=== PATIENT | female | born 1960 | race Caucasian/White ===

== ENCOUNTER → 2019-12-08 14:17 | Outpatient (CLI) | payer OTHER, SELFPAY ==
--- NOTE | ~2019-12-08 | XR_ITS ---
EXAMINATION: XR chest 2V 12/08/2019 14:29 INDICATION: Shortness of breath PROCEDURE: 2 view chest COMPARISON: No prior studies for comparison. FINDINGS: The lungs are clear. Calcified granuloma right upper thorax. The lungs are hyperinflated wh ich is consistent with, but not diagnostic of chronic obstructive pulmonary disease. The cardiomedias tinal silhouette is within normal limits. There are no pleural effusions. There is no pneumothorax suspected. IMPRESSION: 1: NO ACUTE CARDIOPULMONARY DISEASE. Reviewed, dictated and finalized at location B.
== END ==
PROVIDERS: PCP Family Medicine; Visit Provider Nurse Practitioner Family
DX: R06.02 Shortness of breath (principal)
CPT/HCPCS: 71046

== ENCOUNTER 2020-11-28 07:52 | Emergency (ER) | payer OTHER, SELFPAY ==
--- NOTE | ~2020-11-28 | CT_ITS ---
EXAMINATION: CT abdomen pelvis wo con DATE: 11/28/2020 09:52 INDICATION: Left flank pain TECHNIQUE: Computed tomography (CT) of the abdomen and pelvis was performed without intravenous contr ast. The dose-length product (DLP) was 519.41 mGy-cm. Automated exposure control and iterative recons truction technique were employed. COMPARISON: None FINDINGS: The lung bases are clear. The heart size is normal. The gallbladder is surgically absent. T here is mild enlargement of the common bile duct and central intrahepatic ducts which is likely due t o post cholecystectomy state. The liver, spleen, pancreas, and adrenal glands are normal. The kidneys are unremarkable. No stones are identified in the kidneys, ureters, or bladder. There is no hydronep hrosis or hydroureter. No pathologically enlarged abdominal or pelvic lymph nodes are identified. The re is no free intraperitoneal gas or evidence of bowel obstruction. Colonic diverticulosis is present without evidence of diverticulitis. The appendix is normal. IMPRESSION: 1. No CT correlate for the patient's symptoms. Reviewed, dictated and finalized at location A.
[2020-11-28 08:11] VITALS: BP 142/83; PULSE 77; RESP 18; TEMP 36.6; O2SAT 100
--- NOTE | 2020-11-28 08:13 | ED.ABDPAIN ---
HPI - Abdominal Pain General Chief Complaint: Abdominal Pain Stated Complaint: L Flank Pain Time Seen by Provider: 11/28/20 08:12 Source: patient Mode of arrival: ambulatory Limitations: no limitations History of Present Illness HPI narrative: Patient is a 60-year-old female complaining of left flank pain, left mid back pain, 8 out of 10, nonradiating, sharp started 5 days ago accompanied by blood in her urine. Patient states that she has been evaluated for blood in her urine by her urologist and had a cystoscopy done. Patient denies any chest pain, shortness of breath, abdominal pain, nausea, vomiting, diarrhea, fever or chills. Related Data Allergies Allergy/AdvReac Type Severity Reaction Status Date / Time Penicillins Allergy Unknown Unknown Verified 11/28/20 08:15 Review of Systems Review of Systems: All systems reviewed & are unremarkable except as noted in HPI and below Constitutional: Constitutional: Denies body ache(s), Denies chills, Denies excessive sweating, Denies fatigue, Denies fever(s), Denies headache(s), Denies lethargy, Denies malaise, Denies weakness and Denies weight loss Eyes: Eyes: Denies blurry vision, Denies change in vision and Denies loss of vision ENT: Denies dizziness, Denies ear discharge, Denies headache(s), Denies lip swelling, Denies epistaxis, Denies nasal congestion, Denies neck pain, Denies throat swelling and Denies tongue swelling Cardiovascular: Cardiovascular: Denies chest pain, Denies chest pain at rest, Denies chest pain with activity, Denies diaphoresis, Denies rapid heart rate, Denies edema, Denies irregular heart rhythm, Denies lightheadedness, Denies palpitations, Denies dyspnea and Denies dyspnea on exertion Respiratory: Respiratory: Denies chest congestion, Denies cough, Denies hemoptysis, Denies dyspnea and Denies dyspnea on exertion Gastrointestinal: Gastrointestinal: Denies abdominal pain, Denies melena, Denies hematochezia, Denies diarrhea, Denies nausea, Denies vomiting and Denies hematemesis Musculoskeletal: Musculoskeletal: Denies abnormal gait, Denies deformity, Denies joint swelling, Denies limited range of motion, Denies neck pain and Denies numbness Neurologic: Denies Abnormal speech present, Denies abnormal gait, Denies confusion, Denies dizziness, Denies headache(s), Denies focal weakness, Denies loss of vision, Denies numbness, Denies Other visual disturbances, Denies Sensory deficit (Neuro) and Denies weakness Psychiatric: Psychiatric: Denies confusion, Denies depression, Denies auditory hallucinations, Denies homicidal ideation and Denies suicidal ideation Endocrine: Endocrine: Denies cold intolerance, Denies excessive sweating, Denies fatigue, Denies heat intolerance and Denies palpitations Hematologic/Lymphatic: Hematologic/Lymphatic: Denies easy bleeding and Denies easy bruising Allergic/Immunologic: Allergic/Immunologic: Denies lip swelling, Denies throat swelling and Denies tongue swelling PMFSH Past Medical History Medical History BMI 27.0-27.9,adult Encounter for cholecystectomy Surgical History Surgical History History of tonsillectomy Family History Family History Father Heart disease Mother Heart disease Blood clot in vein Hypertension Sibling No problems noted. 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
[2020-11-28 08:18] LABS: Basophils Percent Auto 0.3 % (0.2-1.2); Eosinophils Absolute Auto 0.2 K/mm3 (0-0.3); Eosinophils Percent Auto 2.3 % (0-4.4); Hematocrit 45.4 % (37.0-47.0); Hemoglobin 14.9 g/dL (12.0-15.0); Immature Granulocyte Absolute 0.02 K/mm3 (0.00-0.031); Immature Granulocyte Percent A 0.3 % (0-0.5); Lymphocytes Absolute Auto 2.73 K/mm3 (0.9-3.2); Lymphocytes Percent Auto 42.6 % (18.3-44.2); Mean Corpuscular HGB Conc 32.8 g/dl (32-36); Mean Corpuscular Hemoglobin 31.4 pg (26-34); Mean Corpuscular Volume 95.6 fl (80-100); Mean Platelet Volume 9.8 fl (7.4-10.4); Monocytes Absolute Auto 0.4 K/mm3 (0.1-0.6); Monocytes Percent Auto 6.2 % (2.6-8.5); Neutrophils Absolute Auto 3.1 K/mm3 (1.3-6.7); Neutrophils Percent Auto 48.3 % (45.5-73.1); Platelet Count Result 347 k/mm3 (150-375); Red Blood Count 4.75 M/mm3 (4.2-5.4); Red Cell Distribution Width 13.2 % (11.5-14.5); White Blood Count 6.4 K/mm3 (4.5-10.0)
[2020-11-28 08:31] LABS: Anion Gap 11 mmol/L (8-16); Blood Urea Nitrogen 17 mg/dL (7-17); Calcium 9.4 mg/dL (8.4-10.2); Carbon Dioxide 23 mmol/L (22-30); Chloride 105 mmol/L (98-107); Estimated CRCL calculation 81 ml/min; Estimated Glomerular Filt Rate > 60; Glucose 107 mg/dL (65-105); Potassium 4.4 mmol/L (3.4-5.0); Sodium 139 mmol/L (137-145)
[2020-11-28 08:43] LABS: Add Urine Microscopic? YES; Appearance Urine Clear (Clear); Bacteria Urine Trace /hpf; Bilirubin Urine Negative (Negative); Blood Urine 2+ (Negative); Color Urine Yellow (Yellow); Glucose Urine UA Negative (Negative); Ketones Urine Negative (Negative); Leukocyte Esterase Ur Negative LEU/UL (Negative); Mucus Urine Rare /lpf; Nitrate Urine Negative (Negative); Protein Urine Negative (Negative); Specific Grav Ur 1.018 (1.001-1.035); Squamous Epithelial Cell Urine Many /hpf (Few); Urobilinogen Urine Negative mg/dL (<2.0); WBC Urine 0-3 /hpf
[2020-11-28] MEDS: KETOROLAC 30 MG/ML VIAL (*BKC) IV PUSH (09:11)
[2020-11-28] MEDS: HYDROcodone/acetaminophen (*CRX) 5-325 MG TABLET 1 TAB PO (09:11)
[2020-11-28 09:31] LABS: D Dimer 0.27 ug/mL (<0.48)
[2020-11-28 11:02] VITALS: BP 122/72; PULSE 71; RESP 18; O2SAT 96
== END 2020-11-28 11:05 | disposition home or self-care (01) ==
PROVIDERS: Emergency Provider Emergency Medicine; PCP Family Medicine
DX: M54.9 Dorsalgia, unspecified (principal); E78.5 Hyperlipidemia, unspecified
CPT/HCPCS: 36415; 74176; 80048; 81001; 85025; 85380; 96374; 99284; A9270; J1885

== ENCOUNTER 2023-12-02 08:00 | Outpatient (CLI) | payer BC, OTHER, SELFPAY ==
--- NOTE | ~2023-12-02 | XR_ITS ---
3 VIEWS LUMBAR SPINE Ordering provider: Juan Mathews MD History: . NON TRAUMA LBP FOR APPROX 2 MONTHS RADIATING DOWN LEFT LEG . Comparison: None. FINDINGS: VERTEBRAL BODIES: No visible fracture or subluxation. DISK SPACES: Narrowing of the disc L3-L4, and L4-L5. Multilevel facet joint disease. SOFT TISSUES: Normal. IMPRESSION: No acute osseous abnormality lumbar spine. Multilevel degenerative disc disease. Reviewed, dictated and finalized at location A.
== END 2023-12-02 08:01 | disposition home or self-care (01) ==
PROVIDERS: PCP Family Medicine; Visit Provider Family Medicine
DX: M51.36 Other intervertebral disc degeneration, lumbar region (principal)
CPT/HCPCS: 72114

== ENCOUNTER 2023-12-21 13:21 | Emergency (ER) | payer BC, OTHER, SELFPAY ==
[2023-12-21 14:02] VITALS: BP 147/80; PULSE 95; RESP 16; TEMP 37.3; O2SAT 98
--- NOTE | 2023-12-21 14:22 | ED.URI ---
HPI - URI/Sore Throat General Chief Complaint: Upper Respiratory Infection Stated Complaint: +COVID Time Seen by Provider: 12/21/23 14:23 Source: patient and RN notes reviewed Mode of arrival: ambulatory Limitations: no limitations History of Present Illness HPI Narrative: 63-year-old female presents with concern for positive home COVID test. Reports she had symptoms start yesterday of sore throat, nasal congestion, headache. She reports she just got back from a trip. MD elicited complaint: cough, nasal congestion and sinus pain Related Data Allergies Allergy/AdvReac Type Severity Reaction Status Date / Time Penicillins AdvReac Severe Nausea and Verified 12/21/23 13:59 Vomiting Review of Systems Review of Systems: CONSTITUTIONAL: Reports malaise EYES: Denies visual changes, redness, or discharge. ENT: Reports rhinorrhea, congestion, sinus pain, otalgia and sore throat. CARDIOVASCULAR: Denies chest pain, palpitations, or edema. RESPIRATORY: Reports cough. Denies dyspnea. GASTROINTESTINAL: Denies abdominal pain, nausea, vomiting, diarrhea SKIN: Denies rash or itching. MUSCULOSKELETAL: Reports myalgia. NEUROLOGIC: Reports headache. All systems reviewed & are unremarkable except as noted in HPI and below PMFSH Past Medical History Medical History (Updated 12/21/23 @ 14:29 by Linda Hernandez NP) Dermatitis, eyelid Encounter for cholecystectomy Lumbosacral radiculopathy due to degenerative joint disease of spine Skin abnormalities Surgical History Surgical History History of tonsillectomy Hx of colonoscopy Family History Family History Father Heart disease Mother Heart disease Blood clot in vein Hypertension Sibling Skin cancer Social History Social History Smoking status: Never smoker Second hand tobacco smoke exposure: No Alcohol intake: current Substance use: never Substance use type: does not use Do You Feel Safe in your Home?: Yes Lack of Transportation: No Lack of Food: Never True Current Housing: I Have Housing Concerned About Future Housing: No Difficulty Paying Gas/Electric Bills: No Difficulty Paying for Meds: No Currently Unemployed: No Education: High School Diploma/GED Difficulty w/ Childcare or Family Care: No Living arrangements: with family Occupation/Education: occupation 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 There is no relevant family history pertinent to the presenting complaint Exam Narrative: GENERAL: Nontoxic-appearing, well-nourished, and in no acute distress. HEAD: Normocephalic EYES: PERRLA, conjunctivae clear ENT: Nares clear, turbinates edematous and erythematous, clear discharge. Mucous membranes moist. TM pearly ledesma with dull light reflex bilaterally; no tragal tenderness. Oropharynx not erythematous without lesions. Tonsils not enlarged and without exudate, no drooling, no hoarseness, no trismus, uvula midline. NECK: Supple. No lymphadenopathy CHEST: Clear to auscultation, breath sounds equal. No wheezing, rhonchi, rales, or stridor. No respiratory distress, speaks in full sentences. HEART: Regular rate and rhythm. No murmur heard. SKIN: Warm, dry, no rash. NEURO: Alert and oriented x3. PSYCH: Normal mood and affect Course Course Emergency Course: Patient is aware of diagnosis, understands and agrees to treatment plan. Anticipatory guidance given. Patient agrees to follow-up as directed and is aware of reasons to seek care at the emergency department. Portions of this record may have been created with voice recognition software Level of Care: Express Care Vis
== END 2023-12-21 14:37 | disposition home or self-care (01) ==
PROVIDERS: Emergency Provider Nurse Practitioner; PCP Family Medicine
DX: U07.1 COVID-19 (principal); M54.17 Radiculopathy, lumbosacral region; M47.817 Spondylosis without myelopathy or radiculopathy, lumbosacral region
CPT/HCPCS: 99213; G0463

== ENCOUNTER 2024-01-06 06:42 | Outpatient (CLI) | payer BC, OTHER, SELFPAY ==
--- NOTE | ~2024-01-06 | MR_ITS ---
EXAMINATION: MR lumbar spine wo con DATE: 01/06/2024 07:13 INDICATION: Low back pain, unspecified. TECHNIQUE: Magnetic resonance imaging (MRI) of the lumbar spine was performed without intravenous con trast. Sequences included sagittal T2-weighted FSE, sagittal T2-weighted FS FSE, sagittal T1-weighted FSE, and axial T2-weighted FSE. COMPARISON: Lumbar spine radiographs 12/02/2023 FINDINGS: There is 6 degrees dextrocurvature of lumbar spine. Vertebral body heights are normal. Ther e is mildly decreased disc height at L4-L5. The distal spinal cord signal intensity is normal. The co nus medullaris is at L1. The following disc levels are specifically discussed: L1-L2: The disc is bulging. There is mild right facet joint osteoarthritis. There is no neural forami nal stenosis. There is mild central canal stenosis. L2-L3: The disc is bulging. There is mild bilateral facet joint osteoarthritis. There is no neural fo raminal stenosis. There is mild central canal stenosis. L3-L4: The disc is bulging. There is moderate bilateral facet joint osteoarthritis. There is mild steve ateral neural foraminal stenosis. There is mild central canal stenosis. L4-L5: The disc is bulging. There is severe bilateral facet joint osteoarthritis. There is mild bilat eral neural foraminal stenosis. There is mild central canal stenosis. L5-S1: The disc does not extend beyond the endplate margin. There is severe bilateral facet joint ost eoarthritis. There is mild left neural foraminal stenosis. There is no central canal stenosis. IMPRESSION: 1. Mild lumbar spondylosis. Reviewed, dictated and finalized at location A. IMPRESSION: 1. Mild lumbar spondylosis.
== END 2024-01-06 06:43 | disposition home or self-care (01) ==
PROVIDERS: PCP Family Medicine; Visit Provider Family Medicine
DX: M43.06 Spondylolysis, lumbar region (principal)
CPT/HCPCS: 72148

== ENCOUNTER 2024-09-28 16:41 | Outpatient (CLI) | payer BC, OTHER, SELFPAY ==
--- NOTE | ~2024-09-28 | XR_ITS ---
Cervical Spine: AP, lateral, oblique, open-mouth views Clinical History: Pain Findings: The normal lordotic curve is maintained. No fracture evident. There is minimal grade 1 retr olisthesis of C5 over C6. There is moderate to advanced degenerative disc narrowing at C5-C6 and C6-C 7. There is moderate facet arthropathy in the cervical spine. No instability evident on flexion or ex tension.. Pre-vertebral soft tissues are unremarkable. Impression: Moderate degenerative spondylosis, as above. Minimal grade 1 retrolisthesis of C5 over C6. Reviewed, dictated and finalized at location M. Impression: Moderate degenerative spondylosis, as above. Minimal grade 1 retrolisthesis of C5 over C6.
--- OUTSIDE RECORDS SUMMARY | 2024-09-28 16:56 | XMS_ITS | Continuity of Care Document ---
Author Organization [facility] Address [address] [place] [address] Phone Care Team Providers Care Craft Coordinator Name Role Phone [facility] Unavailable Unavail able Velvet Santiago Unavailable Unavailable Procedures Procedure Date Vision Svcs Frames Purchases SV Poly Carb Sph [place] To +/- 4 010 Polycarb Lens Per [...] Diagnoses Date Provider Providers Copied on Encounter [facility], [address], [place], [place], [id number], [place] tel:[phone] [facility] No Information -201 0 Optical Shop [facility] . [address] [facility], [address], [place], [place], [address], [place]. tel:[phone] Referring Provider: Bro Vera OD A, [address], [place], [address]. tel:[phone] g Provider: Velvet Santiago, [address] [facility], [place], [address]. tel:[phone] [facility], [address] [place] [address] [address], [place], [place], [address], tel:[phone] [facility] No Information Jeremiah-1 1-201 0 Vera OD Bro. [address], [place], [facility], [place]. tel:[phone] [facility], [address] [place] [address] [address], [place], [place], [address], [place] tel:[phone] [facility] No Information Jeremiah-0 3-201 0 Vera OD Bro. [address], [place], [facility], [place]. tel:[phone] [facility], [address] [place] [address] [address], [place], [place], [address], [place] tel:[phone] [facility] No Information May-2 7-201 0 Vera OD Bro. [address], [place], [facility], [place]. tel:[phone] [facility], [address], [place], [place], [address], [place] tel:[phone] [facility] No Information May-2 0-201 0 Vera OD Bro. [address], [place], [facility], [place]. tel:[phone] [facility], [address] [place] [address] [address], [place], [place], [address], [place] tel:[phone] [facility] No Information May-1 3-201 0 Vera OD Bro. [address], [place], [address], [place]. tel:[phone] [facility], [address], [place], [place], [address], [place] tel:[phone] [facility] No Information 9-201 0 Vera OD Bro. [address] [facility] , [address], [place], [address], [place]. tel:[phone] [facility], [address], [place], [place], [address], [place] tel:[phone] [facility] No Information 6-201 0 Vera OD Bro. [address] [facility] [address] [address] , [address], [place], [address], [place]. tel:[phone] [facility], [address] [place] [address] [address], [place], [place], [address], [place] tel:[phone] [facility] No Information 9200 8 [facility] . [address] [facility], [address], [place], [place], [address], [place]. tel:[phone] Referring Provider: Bro Koo, [address] [place], [place] [address], [place], [address]. tel:[phone] g Provider: Velvet Santiago, [address] [place] [address], [place], [address]. tel:[phone] Family History Family Member Type Diagnosis Age At Onset No Information Payers Payer name Insurance type Covered green party ID Authorakiraa aayush(s) P CI [id number] Social History Type Description Quantity Date Captured [...]
--- OUTSIDE RECORDS SUMMARY | 2024-09-28 16:56 | XMS_ITS | Referral Summary ---
Author Organization [facility] Address [address] [place] [address] Care Team Providers Care Tinter Photograph Name Role Phone Juan Mathews MD Primary Care Provider Beryl Bella MD Unavailable [phone] Encounters Date Type Department Care Team Description 07/16/2024 9:15 AM QUALITY CONTROL EXPERT - 07/16/2024 11:59 PM QUALITY CONTROL EXPERT Hospital Encounter [facility] Mammography Van [address] [place] [address] Screening mammogram, encounter for Discharge Disposition: Discharge to home or self care from Last 3 Months Allergies Active Allergy Reactions Criticality Noted Date Comments Penicillins Medications venlafaxine (EFFEXOR) 100 mg tablet Active traZODone (DESYREL) 50 mg tablet 02/23/2023 Active estradioL (ESTRACE) 0.01 % (0.1 mg/gram) vaginal cream Apply a finger tip amount (.25 gram) to internal labia and vaginal opening at bedtime 2-3 times per week. 42.5 g 5 04/02/2023 Active Active Problems Problem Noted Date Diagnosed Date Arthralgia of wrist 02/09/2016 Left elbow pain 06/15/2015 Social History Tobacco Use Types Packs/Day Years Used Date Smoking Tobacco: Never Comments Unknown Sex and Gender Information Value Date Recorded Sex Assigned at Not on file Legal Sex Female 11:44 AM QUALITY CONTROL EXPERT Gender Identity Female 07/01/2018 3:13 PM QUALITY CONTROL EXPERT Sexual Orientation Not on file Plan of Treatment Not on file Procedures Procedure Name Priority Date/Time Associated Diagnosis Comments SCREENING MAMMOGRAM BILATERAL W IRAM Schedule Routine, Read Routine (OP Routine) 07/16/2024 9:26 AM QUALITY CONTROL EXPERT Screening mammogram, encounter for from Last 3 Months Results * Screening Mammogram Bilateral W Iram (07/16/2024 9:26 AM QUALITY CONTROL EXPERT) Anatomical Region Laterality Modality Breast Bilateral Mammography Narrative 07/17/2024 12:43 PM QUALITY CONTROL EXPERT Mammogram Technique: Bilateral Digital Breast Tomosynthesis, Bilateral C-view 2D Screening mammogram. Views obtained: bilateral craniocaudal and bilateral mediolateral oblique. Computer Aided Detection was performed. Mammogram Findings: The present examination has been compared to prior imaging studies performed at [facility] on 02/21/2019, 07/14/2020 and 02/23/2023, and at [facility]. [place], [place] on 07/03/2017. There are scattered areas of fibroglandular density. There is no suspicious abnormality in either breast. Impression: There is no mammographic evidence of malignancy. Annual screening mammography is recommended. OVERALL FINAL ASSESSMENT: BI-RADS CATEGORY 1: Negative. Procedure Note Ban Kaufman MD - 07/17/2024 Mammogram Technique: Bilateral Digital Breast Tomosynthesis, Bilateral C-view 2D Screening mammogram. Views obtained: bilateral craniocaudal and bilateral mediolateral oblique. Computer Aided Detection was performed. Mammogram Findings: The present examination has been compared to prior imaging studies performed at [facility] on 02/21/2019, 07/14/2020 and 02/23/2023, and at [place], [place] on 07/03/2017. There are scattered areas of fibroglandular density. There is no suspicious abnormality in either breast. Impression: There is no mammographic evidence of malignancy. Annual screening mammography is recommended. OVERALL FINAL ASSESSMENT: BI-RADS CATEGORY 1: Negative. us Self Screening Mammogram IMG MAMMO PROCEDURES Fi nal Result from Last 3 Months Insurance [facility] AETNA SIG [id number] R [facility] Care Teams Tinter Photograph Relationship Specialty Start Date End Date Juan Mathews MD [address] [place] [address] PCP - General 07/14/20 Beryl Bella MD [address] [place] [address] [id number] Referring Physician Gynecology 07/16/24
--- OUTSIDE RECORDS SUMMARY | 2024-09-28 16:56 | XMS_ITS | Encounter Summary ---
Author Organization [facility] Healthcare Address [address] [place] [address] Care Team Providers Care Web Production Artist Name Role Phone Chiquita Burch MD Primary Care Provider + Juan Mathews MD Primary Care Provider [phone] Beryl Bella MD Unavailable [phone] Encounter Details Date Type Department Care Team (Late st Contact Info) Description 07/13/2020 Telephone [facility] Van [address] [place] [address] Niru Lopez, RT Social History Tobacco Use Types Packs/Day Years Used Date Smoking Tobacco: Never Comments Unknown Sex and Gender Information Value Date Recorded Sex Assigned at Not on file Legal Sex Female 11:44 AM SCISSORS SHARPENER Gender Identity Female 07/01/2018 3:13 PM SCISSORS SHARPENER Sexual Orientation Not on file documented as of this encounter Plan of Treatment Not on file documented as of this encounter Visit Diagnoses Not on filedocumented in this encounter Care Teams Web Production Artist Relationship Specialty Start Date End Date Chiquita Burch MD PCP - General 11/12/16 07/13/20 Juan Mathews MD [address] [place] [address] PCP - General 07/14/20 Beryl Bella MD [address] [address] Referring Physician Gynecology 07/16/24 documented as of this encounter
--- OUTSIDE RECORDS SUMMARY | 2024-09-28 16:56 | XMS_ITS | Clinical Summary ---
Author Organization [facility] Address [address] [place] [address] Care Team Providers Care Furniture Crater Name Role Phone Juan Mathews MD Primary Care Provider [phone] Beryl Bella MD Unavailable [phone] Allergies Active Allergy Reactions Criticality Noted Date [...] of wrist 02/09/2016 Left elbow pain 06/15/2015 Encounters Date Type Department Care Team Description 07/16/2024 9:15 AM SHAPE HAND - 07/16/2024 11:59 PM [facility] Hospital Encounter [facility] Mammography [address] [place] [address] Screening mammogram, encounter for Discharge Disposition: Discharge to home or self care from Last 3 Months Family History Medical History Relation Name Comments Diabetes Father Family history of diabetes mellitus - (Added by TW Conv) Heart disease Father Family history of cardiac disorder - (Added by TW Conv) Hypertension Father Family history of hypertension - (Added by TW Conv) Kidney disease Father Family histor y of kidney disease - (Added by TW Conv) Seizures Father Family history of seizures - (Added by TW Conv) Relation Name Status Comments Father Social History Tobacco Use Types Packs/Day Years Used Date Smoking Tobacco: Never Comments Unknown Sex and Gender Information Value Date Recorded Sex Assigned at Not on file Legal Sex Female 11:44 AM SHAPE HAND Gender Identity Female 07/01/2018 3:13 PM SHAPE HAND Sexual Orientation Not on file Obstetrics History Plan of Treatment Health Maintenance Due Date Last Done Comments Cervical Cancer Screening 1961 Colon Cancer Screening-Colonoscopy 1961 Depression Screening 1961 Hepatitis C Screening 1961 DTaP/Tdap/Td Vaccine (1 - Tdap) 1972 Hepatitis B Screening 07/27/1979 Regular Well Visit/Exam 18-64 07/27/1979 Zoster Vaccine (1 of 2) 07/27/2011 Influenza Vaccine (#1) 2024 03/25/2020 Breast Cancer Screening-Mammogram 07/16/2025 07/16/2024, 02/23/2023, 07/14/2020, Additional history exists Pneumococcal vaccine <65 Aged Out No longer eligible based on patient's age to complete this topic Procedures Procedure Name Priority Date/Time Associated Diagnosis Comments SCREENING MAMMOGRAM BILATERAL W IRAM Schedule Routine, Read Routine (OP Routine) 07/16/2024 9:26 AM SHAPE HAND Screening mammogram, encounter for from Last 3 Months Results * Screening Mammogram Bilateral W Iram (07/16/2024 9:26 AM SHAPE HAND) Anatomical Region Laterality Modality Breast Bilateral Mammography Narrative 07/17/2024 12:43 PM SHAPE HAND Mammogram Technique: Bilateral Digital Breast Tomosynthesis, Bilateral C-view 2D Screening mammogram. Views obtained: bilateral craniocaudal and bilateral mediolateral oblique. Computer Aided Detection was performed. Mammogram Findings: The present examination has been compared to prior imaging studies performed at [facility] on 02/21/2019, 07/14/2020 and 02/23/2023, and at [place], [place] on 07/03/2017. There are scattered areas [...] compared to prior imaging studies performed at [facility] on 02/21/2019, 07/14/2020 and 02/23/2023, and at [place], [place] on 07/03/2017. There are scattered areas of fibroglandular density. There is no suspicious abnormality in either breast. Impression: There is no mammographic evidence of malignancy. Annual screening mammography is recommended. OVERALL FINAL ASSESSMENT: BI-RADS CATEGORY 1: Negative. us Self Screening Mammogram IMG MAMMO PROCEDURES Fi nal Result from Last 3 Months Insurance [facility] H[facility]/PPO Address: [address] [address] [place] [address] [facility] [id number] [facility] CIGNA [facility] HMO/PPO Address: [address] [address] [place] [address] Care Teams Furniture Crater Relationship Specialty Start Date End Date Juan Mathews MD [address] [place] [address] PCP - General 07/14/20 Beryl Bella MD [address] [address] Referring Physician Gynecology 07/16/24
--- OUTSIDE RECORDS SUMMARY | 2024-09-28 16:56 | XMS_ITS | Clinical Summary ---
Author Organization [facility] Address [address] [place] [address] Care Team Providers Care Gas Engine Mechanic Name Role Phone Unavailable Primary Care Provider Unavailabl e Social History Tobacco Use Types Packs/Day Years Used Date Smoking Tobacco: Never Assessed Comments Unknown Sex and Gender Information Value Date Recorded Sex Assigned at Not on file Legal Sex Female 5:22 PM CDT Gender Identity Not on file Sexual Orientation Not on file Plan of Treatment Health Maintenance Due Date Last Done Comments Cervical Cancer Screening Pa p Smear (Age 30 to 64) Every 3 Years 1961 Colorectal Cancer Screening Colonoscopy (10 Years) 1961 Annual Physical 1964 Hepatitis C 07/27/1979 DTaP, Tdap and Td Vaccines ( 1 - Tdap) 1980 Cervical Cancer Screening Pa p with HPV Testing (Age 30 to 64) Every 5 Years 07/27/1991 Cervical Cancer Screening with HPV 07/27/1991 Mammogram Screening 2001 Pneumococcal Vaccine: 50+ Ye ars (1 of 1 - PCV) 07/27/2011 Zoster Vaccines (1 of 2) 07/27/2011 COVID-19 Vaccine (2023-2 5 season) 2024 RSV Immunization or 60+ Years (1 - 1-dose 75+ series) 2036 Meningococcal B Vaccine Aged Out No l onger eligible based on patient's age to complete this topic Meningococcal Vaccine Aged Out No victor manuel ruperto eligible based on patient's age to complete this topic RSV Immunizations Under 20 Months Aged Out No longer eligible based on patient's age to complete this topic
== END 2024-09-28 16:42 | disposition home or self-care (01) ==
PROVIDERS: PCP Family Medicine; Visit Provider Family Medicine
DX: M47.812 Spondylosis without myelopathy or radiculopathy, cervical region (principal); M43.12 Spondylolisthesis, cervical region
CPT/HCPCS: 72052

== ENCOUNTER 2024-09-30 07:47 | Outpatient (CLI) | payer BC, OTHER, SELFPAY ==
--- OUTSIDE RECORDS SUMMARY | 2024-09-30 07:55 | XMS_ITS | Clinical Summary ---
Author Organization [facility] Address [address] [place] [address] Care Team Providers Care Jersey Knitter Name Role Phone Unavailable Primary Care Provider [...]
--- OUTSIDE RECORDS SUMMARY | 2024-09-30 07:55 | XMS_ITS | Referral Summary ---
Author Organization [facility] Address [address] [place] [address] Care Team Providers Care Cement Mason Helper Name Role Phone Juan Mathews MD Primary Care Provider Beryl Bella MD Unavailable [phone] Encounters Date Type Department Care Team Description 07/16/2024 9:15 AM ROLL GRINDER - 07/16/2024 11:59 PM ROLL GRINDER Hospital Encounter [facility] Mammography Van [address] [place] [address] Screening mammogram, encounter for Discharge Disposition: Discharge [...] on file Legal Sex Female 11:44 AM ROLL GRINDER Gender Identity Female 07/01/2018 3:13 PM ROLL GRINDER Sexual Orientation Not on file Plan of Treatment Not on file Procedures Procedure Name Priority Date/Time Associated Diagnosis Comments SCREENING MAMMOGRAM BILATERAL W IRAM Schedule Routine, Read Routine (OP Routine) 07/16/2024 9:26 AM ROLL GRINDER Screening mammogram, encounter for from Last 3 Months Results * Screening Mammogram Bilateral W Iram (07/16/2024 9:26 AM ROLL GRINDER) Anatomical Region Laterality Modality Breast Bilateral Mammography Narrative 07/17/2024 12:43 PM ROLL GRINDER Mammogram Technique: Bilateral Digital Breast Tomosynthesis, Bilateral C-view 2D Screening mammogram. Views obtained: bilateral craniocaudal and bilateral mediolateral oblique. Computer Aided Detection was performed. Mammogram Findings: The present examination has been compared to prior imaging studies performed at [facility] on 02/21/2019, 07/14/2020 and 02/23/2023, and at [facility]. [place], [place] on 07/03/2017. There are scattered areas [...] compared to prior imaging studies performed at [facility] on 02/21/2019, 07/14/2020 and 02/23/2023, and at [place], [place] on 07/03/2017. There are scattered areas of fibroglandular density. There is no suspicious abnormality in either breast. Impression: There is no mammographic evidence of malignancy. Annual screening mammography is recommended. OVERALL FINAL ASSESSMENT: BI-RADS CATEGORY 1: Negative. us Self Screening Mammogram IMG MAMMO PROCEDURES Fi nal Result from Last 3 Months Insurance [facility]ETNA SIG [id number] [facility] R [facility] Care Teams Cement Mason Helper Relationship Specialty Start Date End Date Juan Mathews MD [address] [place] [address] PCP - General 07/14/20 Beryl Bella MD [address] [place] [address] [phone] Referring Physician Gynecology 07/16/24
--- OUTSIDE RECORDS SUMMARY | 2024-09-30 07:55 | XMS_ITS | Encounter Summary ---
Author Organization [facility] Healthcare Address [address] [place] [address] Care Team Providers Care Quitline Counselor Name Role Phone Chiquita Burch MD Primary Care Provider + Juan Mathews MD Primary Care Provider [phone] Beryl Bella MD Unavailable [phone] Encounter Details Date Type Department Care Team (Late st Contact Info) Description 07/13/2020 Telephone [facility] [address] [place] [address] Niru Lopez, RT Social History Tobacco Use Types Packs/Day Years Used Date Smoking Tobacco: Never Comments Unknown Sex and Gender Information Value Date Recorded Sex Assigned at Not on file Legal Sex Female 11:44 AM UNDERGRADUATE INTERNSHIP Gender Identity Female 07/01/2018 3:13 PM UNDERGRADUATE INTERNSHIP Sexual Orientation Not on file documented as of this encounter Plan of Treatment Not on file documented as of this encounter Visit Diagnoses Not on filedocumented in this encounter Care Teams Quitline Counselor Relationship Specialty Start Date End Date Chiquita Burch MD PCP - General 11/12/16 07/13/20 Juan Mathews MD [address] [place] [address] PCP - General 07/14/20 Beryl Bella MD [address] [address] Referring Physician Gynecology 07/16/24 documented as of this encounter
--- OUTSIDE RECORDS SUMMARY | 2024-09-30 07:55 | XMS_ITS | Clinical Summary ---
Author Organization [facility] Address [address] [place] [address] Care Team Providers Care Cake Puncher Name Role Phone Juan Mathews MD Primary Care Provider [phone] Beryl Bella MD Unavailable Allergies Active Allergy Reactions Criticality Noted Date [...] Department Care Team Description 07/16/2024 9:15 AM APPEALS ANALYST - 07/16/2024 11:59 PM [facility] Hospital Encounter [facility] Mammography [address] [place] [address] Screening mammogram, encounter for Discharge Disposition: Discharge [...] on file Legal Sex Female 11:44 AM APPEALS ANALYST Gender Identity Female 07/01/2018 3:13 PM APPEALS ANALYST Sexual Orientation Not on file Obstetrics History [...] Read Routine (OP Routine) 07/16/2024 9:26 AM APPEALS ANALYST Screening mammogram, encounter for from Last 3 Months Results * Screening Mammogram Bilateral W Iram (07/16/2024 9:26 AM APPEALS ANALYST) Anatomical Region Laterality Modality Breast Bilateral Mammography Narrative 07/17/2024 12:43 PM APPEALS ANALYST Mammogram Technique: Bilateral Digital Breast Tomosynthesis, Bilateral C-view 2D Screening mammogram. Views obtained: bilateral craniocaudal and bilateral mediolateral oblique. Computer Aided Detection was performed. Mammogram Findings: The present examination has been compared to prior imaging studies performed at [facility] on 02/21/2019, 07/14/2020 and 02/23/2023, and at [place], [place] on 07/03/2017. There are scattered areas [...] compared to prior imaging studies performed at [facility] on 02/21/2019, 07/14/2020 and 02/23/2023, and at [place], [place] on 07/03/2017. There are scattered areas of fibroglandular density. There is no suspicious abnormality in either breast. Impression: There is no mammographic evidence of malignancy. Annual screening mammography is recommended. OVERALL FINAL ASSESSMENT: BI-RADS CATEGORY 1: Negative. us Self Screening Mammogram IMG MAMMO PROCEDURES Fi nal Result from Last 3 Months Insurance [facility] H[facility]/PPO Address: [address] [address] [place] [address] [facility] [id number] [facility] OPEN [facility] CIGNA [facility] H[facility]/PPO Address: [address] [address] [place] [address] Care Teams Cake Puncher Relationship Specialty Start Date End Date Juan Mathews MD [address] [address] PCP - General 07/14/20 Beryl Bella MD [address] [address] Referring Physician Gynecology 07/16/24
--- OUTSIDE RECORDS SUMMARY | 2024-09-30 07:55 | XMS_ITS | Continuity of Care Document ---
Author Organization [facility] Address [address] [place] [address] Phone Care Team Providers Care Steam Fitter Supervisor Maintenance Name Role Phone [facility] Unavailable Unavail able Velvet Santiago Unavailable Unavailable Procedures Procedure Date Vision Svcs Frames Purchases SV Poly Carb Sph Battiest To +/- 4 010 Polycarb Lens Per [...] Diagnoses Date Provider Providers Copied on Encounter [facility], [address], [place], [place], [id number], [place] tel:[phone] [facility] No Information -201 0 [facility] . [address] [facility], [address], [place], [place], [id number], [place]. tel:[phone] Referring Provider: Bro Vera OD A, [address], [place], [address]. tel:[phone] g Provider: Velvet Santiago, [address] [facility], [place], [address]. tel:[phone] [facility], [address] [place] [address] [address], [place], [place], [id number], tel:[phone] [facility] No Information Jeremiah-1 1-201 0 Vera OD Bro. [address], [place], [place], [facility], [place]. tel:[phone] [facility], [address] [place] [address] [address], [place], [place], [id number], [place] tel:[phone] [facility] No Information Jeremiah-0 3-201 0 Vera OD Bro. [address] , [address], [place], [place], [facility], [place]. tel:[phone] [facility], [address] [place] [address] [address], [place], [place], [id number], [place] tel:[phone] [facility] No Information May-2 7-201 0 Vera OD Bro. [address], [place], [facility], [place]. tel:[phone] [facility], [address], [place], [place], [id number], [place] tel:[phone] [facility] No Information May-2 0-201 0 Vera OD Bro. [address], [place], [place], [facility], [place]. tel:[phone] [facility], [address] [place] [address] [address], [place], [place], [id number], [place] tel:[phone] [facility] No Information May-1 3-201 0 Vera OD Bro. [address] , [address], [place], [address], [place]. tel:[phone] [facility], [address], [place], [place], [id number], [place] tel:[phone] [facility] No Information 9-201 0 Vera OD Bro. [address] [facility] , [address], [place], [address], [place]. tel:[phone] [facility], [address], [place], [place], [id number], [place] tel:[phone] [facility] No Information 6-201 0 Vera OD Bro. [address] [facility] , [address], [place], [address], [place]. tel:[phone] [facility], [address] [place] [address] [address], [place], [place], [id number], [place] tel:[phone] [facility] No Information 9200 8 [facility] . [address] [facility], [address], [place], [place], [id number], [place]. tel:[phone] Referring Provider: Bro Koo, [address] [place], [place] [address] [address], [place], [address]. tel:[phone] g Provider: Velvet Santiago, [address] [place] [address], [place], [address]. tel:[phone] Family History Family Member Type Diagnosis Age At Onset No Information Payers Payer name Insurance type Covered republican ID Authorakiraa aayush(s) P CI [id number] Social History Type Description Quantity Date Captured [...]
[2024-09-30 08:04] LABS: Hematocrit 42.3 % (37.0-47.0); Hemoglobin 13.5 g/dL (12.0-15.0); Mean Corpuscular HGB Conc 31.9 g/dl (32-36); Mean Corpuscular Hemoglobin 31.3 pg (26-34); Mean Corpuscular Volume 97.9 fl (80-100); Mean Platelet Volume 9.4 fl (7.4-10.4); Platelet Count Result 273 k/mm3 (150-375); Red Blood Count 4.32 M/mm3 (4.2-5.4); Red Cell Distribution Width 12.7 % (11.5-14.5); White Blood Count 4.7 K/mm3 (4.5-10.0)
[2024-09-30 08:32] LABS: Erythrocyte Sedimentation Rate 15 mm/hr (0-20)
[2024-09-30 08:39] LABS: Alanine Aminotransferase 38 U/L (6-35); Albumin Level 4.1 g/dL (3.5-5.1); Alkaline Phosphatase 83 U/L (38-126); Anion Gap 7 mmol/L (4-12); Aspartate Amino Transferase 33 U/L (14-36); Bilirubin,Total 0.4 mg/dL (0.2-1.3); Blood Urea Nitrogen 17 mg/dL (7-17); Calcium 8.9 mg/dL (8.4-10.2); Carbon Dioxide 28 mmol/L (22-30); Chloride 106 mmol/L (98-107); Cholesterol 245 mg/dL (0-200); Estimated Glomerular Filt Rate > 60; Glucose 106 mg/dL (65-110); HDL Direct 41 mg/dL; Potassium 4.3 mmol/L (3.4-5.0); Sodium 141 mmol/L (137-145); Triglycerides 221 mg/dL (<150)
[2024-09-30 08:50] LABS: LDL Cholesterol Direct 115 mg/dL
[2024-09-30 08:51] LABS: Vitamin D 25 Hydroxy 41.1 ng/mL
== END 2024-09-30 07:48 | disposition home or self-care (01) ==
LOC: ANHLAB 07:50
PROVIDERS: PCP Family Medicine; Visit Provider Family Medicine
DX: M79.10 Myalgia, unspecified site (principal); E55.9 Vitamin D deficiency, unspecified; R79.89 Other specified abnormal findings of blood chemistry; Z13.220 Encounter for screening for lipoid disorders; E78.5 Hyperlipidemia, unspecified; R53.82 Chronic fatigue, unspecified
CPT/HCPCS: 36415; 80048; 80061; 80076; 82306; 84443; 85027; 85652

== ENCOUNTER 2024-11-23 09:58 | Outpatient (CLI) | payer BC, OTHER, SELFPAY ==
--- NOTE | 2024-11-23 11:00 | NEURO_ITS ---
Impression: # Complains of intermittent pain in lower extremities ? # Normal Nerve conduction study # Normal needle/EMG exam ? # Clinical correlation recommended Nerve Conduction Studies ?Stim Site NR Peak (ms) P-T Amp (?V) Site1 Site2 Delta-P (ms) Dist (cm) Juanjo (m/s) Left Sup Fibular Anti Sensory (Ant Lat Mall) 14 cm ? 3.0 10.3 14 cm Ant Lat Mall 3.0 16.0 53 Right Sup Fibular Anti Sensory (Ant Lat Mall) 14 cm ? 3.4 11.6 14 cm Ant Lat Mall 3.4 16.0 47 Left Sural Anti Sensory (Lat Mall) Calf ? 3.3 9.1 Calf Lat Mall 3.3 16.0 48 Right Sural Anti Sensory (Lat Mall) Calf ? 3.2 10.2 Calf Lat Mall 3.2 16.0 50 ?Stim Site NR Onset (ms) O-P Amp (mV) Site1 Site2 Delta-0 (ms) Dist (cm) Juanjo (m/s) Left Peroneal Motor (Vastus Med) Ankle ? 4.2 1.8 Popit Ankle 7.5 41.0 55 Popit ? 11.7 1.6 Right Peroneal Motor (Vastus Med) Ankle ? 3.8 6.6 Popit Ankle 7.6 38.0 50 Popit ? 11.4 5.8 Left Tibial Motor (Abd Hyman Brev) Ankle ? 4.3 7.3 Knee Ankle 7.3 41.0 56 Knee ? 11.6 2.7 Right Tibial Motor (Abd Hyman Brev) Ankle ? 4.0 10.6 Knee Ankle 8.0 39.0 49 Knee ? 12.0 6.3 Electromyography ?Side Muscle Nerve Root Ins Act Fibs Amp Dur Recrt Comment Right AntTibialis Dp Br Fibular L4-5 Nml Nml Nml Nml Nml Right Gastroc Tibial S1-2 Nml Nml Nml Nml Nml Right Fibularis Long Sup Br Fibular L5-S1 Nml Nml Nml Nml Nml Right Flex Dig Long Tibial L5-S2 Nml Nml Nml Nml Nml Right Ext Dig Brev Dp Br Fibular L5, S1 Nml Nml Nml Nml Nml Right QuadratusFem QuadFemoris L4-5, S1 Nml Nml Nml Nml Nml Left AntTibialis Dp Br Fibular L4-5 Nml Nml Nml Nml Nml Left Gastroc Tibial S1-2 Nml Nml Nml Nml Nml Left Fibularis Long Sup Br Fibular L5-S1 Nml Nml Nml Nml Nml Left Flex Dig Long Tibial L5-S2 Nml Nml Nml Nml Nml Left Ext Dig Brev Dp Br Fibular L5, S1 Nml Nml Nml Nml Nml Left QuadratusFem QuadFemoris L4-5, S1 Nml Nml Nml Nml Nml
== END 2024-11-23 09:59 | disposition home or self-care (01) ==
LOC: ANHNEURO 10:01
PROVIDERS: PCP Family Medicine; Visit Provider Family Medicine
DX: R20.0 Anesthesia of skin (principal); M47.27 Other spondylosis with radiculopathy, lumbosacral region
CPT/HCPCS: 95886; 95910

== ENCOUNTER 2025-03-23 08:14 | Emergency (ER) | payer BC, OTHER, SELFPAY ==
--- OUTSIDE RECORDS SUMMARY | 2009-11-06 19:00 | XMS_ITS | Continuity of Care Document ---
Author Organization [facility] Address [address] [place] [address] Phone Care Team Providers Care [employer] Name Role Phone [facility] Unavailable Unavail able Velvet Santiago Unavailable Unavailable Procedures Procedure Date Vision Svcs Frames Purchases SV Poly Carb Sph [place] To +/- 4 010 Polycarb Lens Per Lens Contact Lens Check Contact Lens Hydrophilic, Spherical Tax - Medical Contact Lens Check Contact Lens Check Contact Lens Check Contact Lens Check Contact Lens Check Eye Exam & Treatment Refraction Vision Svcs Frames Purchases Progressive Lens, Polycarb Tax - Medical Advance Directives Directive Yes / No Effective Date File Name No Information Encounters Encounter Description Practice Location Reason(s) For Visit Diagnoses Date Provider Providers Copied on Encounter [facility], [address], [place], [place], [address], [place] tel:[phone] [facility] No Information -201 0 [facility] . [address] [facility], [address], [place], [place], [address], [place]. tel:[phone] Referring Provider: Bro Vera OD A, [address], [place], [address]. tel:[phone] g Provider: Velvet Santiago, [address] [facility], [place], [address]. tel:[phone] [facility], [address] [place] [address] [address], [place], [place], [address], tel:[phone] [facility] No Information Jeremiah-1 1-201 0 Vera OD Bro. [address], [place], [place], [facility], [place]. tel:[phone] [facility], [address] [place] [address] [address], [place], [place], [address], [place] tel:[phone] [facility] No Information Jeremiah-0 3-201 0 Vera OD Bro. [address], [place], [place], [facility], [place]. tel:[phone] [facility], [address] [place] [address] [address], [place], [place], [address], [place] tel:[phone] [facility] No Information May-2 7-201 0 Vera OD Bro. [address], [place], [facility], [place]. tel:[phone] [facility], [address], [place], [place], [address], [place] tel:[phone] [facility] No Information May-2 0-201 0 Vera OD Bro. [address], [place], [facility], [place]. tel:[phone] [facility], [address] [place] [address] [address], [place], [place], [address], [place] tel:[phone] [facility] No Information May-1 3-201 0 Vera OD Bro. [address], [place], [address], [place]. tel:[phone] [facility], [address], [place], [place], [address], [place] tel:[phone] [facility] No Information 9-201 0 Vera OD Bro. [address] [facility] , [address], [place], [address], [place]. tel:[phone] [facility], [address], [place], [place], [address], [place] tel:[phone] [facility] No Information 6-201 0 Vera OD Bro. [address] [facility] , [address], [place], [address], [place]. tel:[phone] [facility], [address] [place] [address] [address], [place], [place], [address], [place] tel:[phone] [facility] No Information 9200 8 [facility] Shop [facility] . [address] [facility], [address], [place], [place], [address], [place]. tel:[phone] Referring Provider: Bro Koo, [address] [place], [place] [address], [place], [address]. tel:[phone] g Provider: Velvet Santiago, [address] [place] [address], [place], [address]. tel:[phone] Family History Family Member Type Diagnosis Age At Onset No Information Payers Payer name Insurance type Covered republican ID Authorakiraa aayush(s) P CI [id number] Social History Type Description Quantity Date Captured Comments Sex Female Smoking Status No Information Chief Complaint And Reason For Visit No Information Reason For Referral Reason For Referral No Information History Of Present Illness Encounter Date Complaint History Of Prese nt Illness No Information Functional Status Date Functional Assessmen t No Information Instructions Date Instruction Additional Infor mation No Information Assessments Type Assessment Date No Information Patient Care Teams Name Effective Dates (start - stop) Status Members No Information
--- NOTE | ~2025-03-23 | XR_ITS ---
EXAMINATION: XR elbow LT min 3V, 03/23/2025 8:45 CDT HISTORY: elbow injury, FELL, HX PAST SURGERY LT ELBOW COMPARISON: No comparisons available. Findings: There is a displaced fracture of the medial head which appears abnormal. There is a displaced fracture of the proximal ulna coronary. The supracondylar humerus is dislocated posteriorly and medially. No significant degenerative changes. Soft tissues unremarkable. Impression: Fracture dislocation Reviewed, dictated and finalized at location P. Impression: Fracture dislocation
[2025-03-23 08:18] VITALS: BP 127/81; PULSE 61; RESP 19; TEMP 36.8; O2SAT 100
--- OUTSIDE RECORDS SUMMARY | 2025-03-23 08:23 | XMS_ITS | Encounter Summary ---
Author Organization [facility] Address [address] [place] [address] Care Team Providers Care Furs Salesperson Name Role Phone Chiquita Burch MD Primary Care Provider + Juan Mathews MD Primary Care Provider [phone] Beryl Bella MD Unavailable [phone] Encounter Details Date Type Department Care Team (Late st Contact Info) Description 07/13/2020 Telephone [facility] [address] [place] [address] Niru Lopez, RT Social History Tobacco Use Types Packs/Day Years Used Date Smoking Tobacco: Never Comments Unknown Sex and Gender Information Value Date Recorded Sex Assigned at Not on file Legal Sex Female 11:44 AM LIVESTOCK FARM 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
--- OUTSIDE RECORDS SUMMARY | 2025-03-23 08:24 | XMS_ITS | Clinical Summary ---
Author Organization [facility] Address [address] [place] [address] Care Team Providers Care Top Icer Name Role Phone Unavailable Primary Care Provider [...] Vaccines (1 of 2) 07/27/2011 COVID-19 Vaccine (2024-2 6 season) 2025 Influenza Adult (#1) 2025 RSV Immunization or 60+ Years (1 - 1-dose 75+ series) 2036 Hepatitis A Vaccines Aged Out No long er eligible based on patient's age to complete this topic Meningococcal B Vaccine Aged Out No l onger eligible based on patient's age to complete this topic Meningococcal Vaccine Aged Out No victor manuel ruperto eligible based on patient's age to complete this topic RSV Immunizations Under 20 Months Aged Out No longer eligible based on patient's age to complete this topic
--- OUTSIDE RECORDS SUMMARY | 2025-03-23 08:24 | XMS_ITS | Clinical Summary ---
Author Organization [facility] Address [address] [place] [address] Care Team Providers Care Radiologic Technologist Name Role Phone Juan Mathews MD Primary Care Provider [phone] Beryl Bella MD Unavailable [phone] Allergies Active Allergy Reactions Criticality Noted Date [...] of wrist 02/09/2016 Left elbow pain 06/15/2015 Family History Medical History Relation Name Comments [...] on file Legal Sex Female 11:44 AM PRESENTATION MANAGER Gender Identity Female 07/01/2018 3:13 PM PRESENTATION MANAGER Sexual Orientation Not on file Obstetrics History Plan of Treatment Health Maintenance Due Date Last Done Comments Cervical Cancer Screening 1961 Colon Cancer Screening-Colonoscopy 1961 Depression Screening 1961 Hepatitis C Screening 1961 DTaP/Tdap/Td Vaccine (1 - Tdap) 1972 Hepatitis B Screening 07/27/1979 Regular Well Visit/Exam 18-64 07/27/1979 Zoster Vaccine (1 of 2) 07/27/2011 Influenza Vaccine (#1) 2025 03/25/2020 Breast Cancer Screening-Mammogram 07/16/2025 07/16/2024, 02/23/2023, 07/14/2020, Additional history exists Pneumococcal vaccine <65 Aged Out No longer eligible based on patient's age to complete this topic Procedures Procedure Name Priority Date/Time Associated Diagnosis Comments SCREENING MAMMOGRAM BILATERAL W IRAM Schedule Routine, Read Routine (OP Routine) 07/16/2024 9:26 AM PRESENTATION MANAGER Screening mammogram, encounter for from Last 3 Months or Most Recently Relevant to Health Maintenance Results * Screening Mammogram Bilateral W Iram (07/16/2024 9:26 AM PRESENTATION MANAGER) Anatomical Region Laterality Modality Breast Bilateral Mammography Narrative 07/17/2024 12:43 PM PRESENTATION MANAGER Mammogram Technique: Bilateral Digital Breast Tomosynthesis, Bilateral C-view 2D Screening mammogram. Views obtained: bilateral craniocaudal and bilateral mediolateral oblique. Computer Aided Detection was performed. Mammogram Findings: The present examination has been compared to prior imaging studies performed at [facility] on 02/21/2019, 07/14/2020 and 02/23/2023, and at [facility]. [place], [place] on 07/03/2017. There are scattered areas [...] compared to prior imaging studies performed at [facility] on 02/21/2019, 07/14/2020 and 02/23/2023, and at [place], [place] on 07/03/2017. There are scattered areas of fibroglandular density. There is no suspicious abnormality in either breast. Impression: There is no mammographic evidence of malignancy. Annual screening mammography is recommended. OVERALL FINAL ASSESSMENT: BI-RADS CATEGORY 1: Negative. us Self Screening Mammogram IMG MAMMO PROCEDURES Fi nal Result from Last 3 Months or Most Recently Relevant to Health Maintenance Insurance [facility] [place] [id number] C[facility]NA [facility] Care Teams Radiologic Technologist Relationship Specialty Start Date End Date Juan Mathews MD [address] [address] PCP - General 07/14/20 Beryl Bella MD [address] [place] [address] Referring Physician Gynecology 07/16/24
--- NOTE | 2025-03-23 08:30 | ED_ITS ---
HPI - General Adult General Chief complaint: Extremity Injury, Upper Stated complaint: I think I broke my arm Time Seen by Provider: 03/23/25 08:16 History of Present Illness HPI narrative: 64-year-old female present to the emergency department for evaluation for left elbow pain. Patient reports she was walking her dog this morning slipped in the mud landed on her left elbow on the concrete. Patient does have a prior history of radial head removal in 2016 done at [facility]-patient had a prior elbow fracture as a child that was not treated properly and had a re-injury and 2016 and she was told the only way to fix this was to have the radial head removed. This was performed by Dr. Duarte. With this fall today patient denies striking head denies any loss of consciousness. Related Data Allergies Allergy/AdvReac Type Severity Reaction Status Date / Time Penicillins AdvReac Severe Nausea and Verified 03/23/25 08:22 Vomiting Review of Systems 2 Review of Systems: All systems reviewed & are unremarkable except as noted in HPI and below PMFSH Past Medical History Medical History Lumbosacral radiculopathy due to degenerative joint disease of spine Skin abnormalities Dermatitis, eyelid Encounter for cholecystectomy Surgical History Surgical History Hx of colonoscopy History of tonsillectomy Family History Family History Father Heart disease Mother Heart disease Blood clot in vein Hypertension Sibling Skin cancer Social History Social History Smoking status: Never smoker Second hand tobacco smoke exposure: No Alcohol intake: current Substance use: never Substance use type: does not use Do You Feel Safe in your Home?: Yes Lack of Transportation: No Lack of Food: Never True Current Housing: I Have Housing Concerned About Future Housing: No Difficulty Paying Gas/Electric Bills: No Difficulty Paying for Meds: No Currently Unemployed: No Education: High School Diploma/GED Difficulty w/ Childcare or Family Care: No Living arrangements: with family Occupation/Education: occupation 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 HEAD: normocephalic, atraumatic. EYES: PERRLA/EOMI, conjunctivae clear. NOSE: Normal no drainage EARS:TMS clear with good light reflex. THROAT: Pharynx clear, no exudate. NECK: Supple. No adenopathy, no masses. RESPIRATORY: Airway patent, respirations nonlabored. Clear to auscultation bilaterally, no rales, rhonchi, wheezing. CARDIOVASCULAR: Regular rate and rhythm without murmurs rubs or gallops. ABDOMINAL: Soft, nontender, nondistended, normal bowel sounds MUSCULOSKELETAL: Tenderness to left elbow, no tenderness to left wrist left hand left humerus or left shoulder NEURO: Alert. Cranial nerves II through XII intact. Good gait. Good coordination SKIN: Warm, dry. Normal Color Course Vital Signs Vital signs: Vital Signs Temperature 98.3 F 03/23/25 08:18 Pulse Rate 61 03/23/25 08:18 Respiratory Rate 19 03/23/25 08:18 Blood Pressure 127/81 03/23/25 08:18 Pulse Oximetry 100 03/23/25 08:18 Oxygen Delivery Room Air 03/23/25 08:18 Temperature 98.3 F 03/23/25 08:18 Pulse Rate 73 03/23/25 10:13 Respiratory Rate 12 03/23/25 10:13 Blood Pressure 142/75 H 03/23/25 10:13 Pulse Oximetry 96 03/23/25 10:13 Oxygen Delivery Room Air 03/23/25 08:18 Medical Decision Making [facility] Narrative Medical decision making narrative: 64-year-old female presents emergency department for evaluation for left elbow injury. Patient is currently afebrile with no leukocytosis hemoglobin 14.0. INR is 0.9. No significant acute abnormalities on her CMP. X-rays concerning for elbow fracture medial dislocation. Did discuss the case with our orthopedic surgeon he felt that this was not benefit from transfer. He was also concerned that with reduction this would be unstable fracture. I did place a splint on the patient. Patient was rechecked multiple times and she remained neurovascularly intact with strong distal pulses. Patient's pain was improved with Dilaudid for pain control. Patient was updated on the results of the x-ray and the reason for transfer. All questions concerns were addressed and patient was stable at time of transfer. Case was discussed with [place] and patient was accepted as a ED to ED transfer. Differential Diagnosis Differential Diagnosis: Elbow fracture, elbow dislocation Vital Signs Vital Signs: Vital Signs Temperature 98.3 F 03/23/25 08:18 Pulse Rate 61 03/23/25 08:18 Respiratory Rate 19 03/23/25 08:18 Blood Pressure 127/81 03/23/25 08:18 Pulse Oximetry 100 03/23/25 08:18 Oxygen Delivery Room Air 03/23/25 08:18 Temperature 98.3 F 03/23/25 08:18 Pulse Rate 73 03/23/25 10:13 Respiratory Rate 12 03/23/25 10:13 Blood Pressure 142/75 H 03/23/25 10:13 Pulse Oximetry 96 03/23/25 10:13 Oxygen Delivery Room Air 03/23/25 08:18 Lab Data Lab results reviewed: Yes I reviewed the patient's lab results. 03/23/25 09:26 03/23/25 08:36 Labs: Lab Results 03/23/25 03/23/25 03/23/25 Range/Units 08:36 08:47 09:26 WBC 9.7 (4.5-10.0) K/mm3 RBC 4.45 (4.2-5.4) M/mm3 Hgb 14.0 (12.0-15.0) g/dL Hct 42.6 (37.0-47.0) % MCV 95.7 (80-100) fl MCH 31.5 (26-34) pg MCHC 32.9 (32-36) g/dl RDW 13.2 (11.5-14.5) % Plt Count 328 (150-375) k/mm3 MPV 9.5 (7.4-10.4) fl Immature Gran % (Auto) 0.4 (0-0.5) % Neut % (Auto) 79.2 H (45.5-73.1) % Lymph % (Auto) 15.9 L (18.3-44.2) % [place] % (Auto) 3.9 (2.6-8.5) % Eos % (Auto) 0.4 (0-4.4) % Baso % (Auto) 0.2 (0.2-1.2) % Lymph # (Auto) 1.53 (0.9-3.2) K/mm3 [place] # (Auto) 0.4 (0.1-0.6) K/mm3 Eos # (Auto) 0.0 (0-0.3) K/mm3 Baso # (Auto) 0.0 (0.0-0.1) K/mm3 Abs Immat Gran (auto) 0.04 H (0.00-0.031) K/mm3 Absolute Neuts (auto) 7.6 H (1.3-6.7) K/mm3 Absolute Nucleated RBC 0.000 (0.0-0.012) K/mm3 Nucleated RBC % 0.0 (0.0-0.2) % PT 12.2 (11.1-14.7) Seconds INR 0.9 APTT 22.3 (22.3-36.8) Seconds Sodium 139 (137-145) mmol/L Potassium 4.1 (3.4-5.0) mmol/L Chloride 106 (98-107) mmol/L Carbon Dioxide 24 (22-30) mmol/L Anion Gap 9 (4-12) mmol/L BUN 18 H (7-17) mg/dL Creatinine 0.63 L (0.7-1.0) mg/dL Estim Creat Clear Calc 75 ml/min Estimated GFR > 60 (59 - ) Glucose 122 H (65-110) mg/dL Calcium 9.1 (8.4-10.2) mg/dL Total Bilirubin 0.6 (0.2-1.3) mg/dL AST 31 (14-36) U/L ALT 21 (6-35) U/L Alkaline Phosphatase 74 (38-126) U/L Total Protein 7.3 (6.3-8.2) g/dL Albumin 4.6 (3.5-5.1) g/dL Imaging Data Radiologist's impression: Impressions Elbow X-Ray 03/23/25 09:14 Impression: Fracture dislocation Discharge Plan Discharge Clinical Impression: Closed fracture dislocation of elbow Patient Disposition: Acute Care Hospital Condition: Stable Patient Language: Guinean Prescriptions: No Action cyclobenzaprine 10 mg tablet 10 mg PO QHS Qty: 30 1RF nabumetone 750 mg tablet 750 mg PO BID Qty: 60 1RF duloxetine 30 mg capsule,delayed release(DR/EC) 30 mg PO DAILY Qty: 90 3RF trazodone 50 mg tablet 50 mg PO QHS Qty: 90 3RF Follow-up/Referrals: Juan Mathews MD [Primary Care Provider, [facility]]
[2025-03-23] MEDS: HYDROmorphone HCL INJ (*CRX) 1 MG/ML SYR 0.5 MG IV PUSH ×2 (08:34→09:54)
[2025-03-23 08:53] LABS: Alanine Aminotransferase 21 U/L (6-35); Albumin Level 4.6 g/dL (3.5-5.1); Alkaline Phosphatase 74 U/L (38-126); Anion Gap 9 mmol/L (4-12); Aspartate Amino Transferase 31 U/L (14-36); Bilirubin,Total 0.6 mg/dL (0.2-1.3); Blood Urea Nitrogen 18 mg/dL (7-17); Calcium 9.1 mg/dL (8.4-10.2); Carbon Dioxide 24 mmol/L (22-30); Chloride 106 mmol/L (98-107); Estimated CRCL calculation 75 ml/min; Estimated Glomerular Filt Rate > 60; Glucose 122 mg/dL (65-110); Potassium 4.1 mmol/L (3.4-5.0); Sodium 139 mmol/L (137-145); Total Protein 7.3 g/dL (6.3-8.2)
[2025-03-23 09:14] LABS: INR 0.9; Prothrombin Time 12.2 Seconds (11.1-14.7)
[2025-03-23 09:15] LABS: Partial Thromboplastin Time 22.3 Seconds (22.3-36.8)
[2025-03-23 09:27] VITALS: BP 124/74; PULSE 62; RESP 16; O2SAT 99
[2025-03-23 09:35] LABS: Hematocrit 42.6 % (37.0-47.0); Hemoglobin 14.0 g/dL (12.0-15.0); Immature Granulocyte Percent A 0.4 % (0-0.5); Lymphocytes Absolute Auto 1.53 K/mm3 (0.9-3.2); Mean Corpuscular HGB Conc 32.9 g/dl (32-36); Mean Corpuscular Hemoglobin 31.5 pg (26-34); Mean Corpuscular Volume 95.7 fl (80-100); Nucleated Red Blood Cells Absolute Auto 0.000 K/mm3 (0.0-0.012); Nucleated Red Blood Cells Perc 0.0 % (0.0-0.2); Platelet Count Result 328 k/mm3 (150-375); Red Blood Count 4.45 M/mm3 (4.2-5.4); White Blood Count 9.7 K/mm3 (4.5-10.0)
--- OUTSIDE RECORDS SUMMARY | 2025-03-23 09:58 | XMS_ITS | Clinical Summary ---
Author Organization [facility] Address [address] [place] [address] Care Team Providers Care Data Transcriber Name Role Phone Unavailable Primary Care Provider [...]
--- OUTSIDE RECORDS SUMMARY | 2025-03-23 09:58 | XMS_ITS | Encounter Summary ---
Author Organization [facility] Address [address] [place] [address] Care Team Providers Care Plastic Top Assembler Name Role Phone Chiquita Burch MD Primary Care Provider + Juan Mathews MD Primary Care Provider [phone] Beryl Bella MD Unavailable [phone] Encounter Details Date Type Department Care Team (Late st Contact Info) Description 07/13/2020 Telephone [facility] [address] [place] [address] Niru Lopez, RT Social History Tobacco Use Types Packs/Day Years Used Date Smoking Tobacco: Never Comments Unknown Sex and Gender Information Value Date Recorded Sex Assigned at Not on file 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
--- OUTSIDE RECORDS SUMMARY | 2025-03-23 09:59 | XMS_ITS | Clinical Summary ---
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 Gender Identity Female 07/01/2018 3:13 PM RETORT CONDENSER ATTENDANT Sexual Orientation Not on file Obstetrics History [...] Read Routine (OP Routine) 07/16/2024 9:26 AM RETORT CONDENSER ATTENDANT Screening mammogram, encounter for from Last 3 Months or Most Recently Relevant to Health Maintenance Results * Screening Mammogram Bilateral W Iram (07/16/2024 9:26 AM RETORT CONDENSER ATTENDANT) Anatomical Region Laterality Modality Breast Bilateral Mammography Narrative 07/17/2024 12:43 PM RETORT CONDENSER ATTENDANT Mammogram Technique: Bilateral Digital Breast Tomosynthesis, Bilateral C-view 2D Screening mammogram. Views obtained: bilateral craniocaudal and bilateral mediolateral oblique. Computer Aided Detection was performed. Mammogram Findings: The present examination has been compared to prior imaging studies performed at [facility] on 02/21/2019, 07/14/2020 and 02/23/2023, and at [facility]. [place], [place] on 07/03/2017. There are scattered areas [...] to prior imaging studies performed at [facility] on 02/21/2019, 07/14/2020 and 02/23/2023, and at [place], [place] on 07/03/2017. There are scattered areas of fibroglandular density. There is no suspicious abnormality in either breast. Impression: There is no mammographic evidence of malignancy. Annual screening mammography is recommended. OVERALL FINAL ASSESSMENT: BI-RADS CATEGORY 1: Negative. us Self Screening Mammogram IMG MAMMO PROCEDURES Fi nal Result from Last 3 Months or Most Recently Relevant to Health Maintenance Insurance [facility] H[facility]/PPO Address: [address] [address] [place] [address] ANTHEM ACCESS AETNA SIG [id number] [facility] CIGNA [facility] HMO/PPO Address: [address] [address] [place] [address] Care Teams International Affairs Vice President Relationship Specialty Start Date End Date Juan Mathews MD [address] [address] PCP - General 07/14/20 Beryl Bella MD [address] [place] [address] Referring Physician Gynecology 07/16/24
[2025-03-23 10:13] VITALS: BP 142/75; PULSE 73; RESP 12; O2SAT 96
== END 2025-03-23 11:15 | disposition short-term general hospital (02) ==
PROVIDERS: Emergency Provider Emergency Medicine; PCP Family Medicine
DX: S52.122A Displaced fracture of head of left radius, initial encounter for closed fracture (principal); S52.092A Other fracture of upper end of left ulna, initial encounter for closed fracture; Z90.49 Acquired absence of other specified parts of digestive tract; W01.0XXA Fall on same level from slipping, tripping and stumbling without subsequent striking against object, initial encounter; Y93.K1 Activity, walking an animal
CPT/HCPCS: 29105; 36415; 73080; 80053; 85025; 85610; 85730; 96374; 96376; 99285; A4565; J1171